=== PATIENT | male | born 1965 | race Caucasian/White ===

== ENCOUNTER → 2016-10-15 | Outpatient (CLI) | payer OTHER ==
[~2016-10-15] MED LIST: AUGMENTIN 875-1 EACH PO; AZITHROMYCIN500 MG PO; COENZYME Q1030 MG PO; DELTASONE10 MG PO; DELTASONE20 MG PO; DELTASONE5 MG PO; EFFEXOR XR150 MG PO; EFFEXOR XR75 MG PO; FISH OIL1000 MG PO; FLONASE 50 MCG/16 GM NOSE; LEVAQUIN500 MG PO; LEVAQUIN750 MG PO; MEN'S ONE DAIL1 EACH PO; VITAMIN C1000 MG PO; XYZAL5 MG PO; ZINC50 M1 PO; ZYRTEC10 MG PO; [UNRECOGNIZED DRUG - REMARK] IM
== END | disposition disaster alternative care site (69) ==
LOC: GRAD 13:48
DX: M54.2 Cervicalgia (principal); M47.812 Spondylosis without myelopathy or radiculopathy, cervical region; M50.223 Other cervical disc displacement at C6-C7 level; R20.0 Anesthesia of skin

== ENCOUNTER 2017-01-12 10:30 | Observation (INO) | payer OTHER ==
[~2017-01-12] VITALS: Ht 185.4 cm; Wt 103.0 kg
[~2017-01-12 10:30] MED LIST changes: -AUGMENTIN 875-1 EACH PO; -AZITHROMYCIN500 MG PO; -LEVAQUIN500 MG PO; -ZINC50 M1 PO
[2017-01-12] MEDS ORDERED: ZINC50 M1 PO (11:49)
[2017-01-12] MEDS ORDERED: AUGMENTIN 875-1 EACH PO (11:59)
[2017-01-12] MEDS ORDERED: AZITHROMYCIN500 MG PO (12:01)
--- NOTE | 2017-01-12 12:42 | NUR ---
Pt is 51 y/o male admit for pneumonia for Dr.Chadd Brewster. Pt alert and oriented x3. No allergies to medications. Resides at home with his spouse. Hx pneumonia,bronchitis,occas sinus headache,hemorrhoid. Started getting sick last Tuesday, saw on Tuesday and started Zpack. Did not have any improvement since then and had fever 102 last night with chills. CAme from [facility] today.
[2017-01-12 15:40] LABS: BILIRUBIN URINE NEGATIVE (NEGATIVE); BLOOD URINE NEGATIVE /UL (NEGATIVE); COLOR URINE YELLOW (YELLOW); GLUCOSE URINE NEGATIVE (NEGATIVE); KETONE URINE NEGATIVE (NEGATIVE); LEUKOCYTES URINE NEGATIVE /UL (NEGATIVE); NITRITE URINE NEGATIVE (NEGATIVE); PROTEIN URINE NEGATIVE (NEGATIVE); SPEC GRAVITY URINE 1.015 (1.003-1.035); TURBIDITY URINE CLEAR (CLEAR); UROBILINOGEN URINE NORMAL (NORMAL)
[2017-01-12 16:10] LABS: BASOPHIL % 0.5 %; EOSINOPHIL # 0.5 K/uL (0.0-0.5); EOSINOPHIL % 8.6 %; HEMATOCRIT 48.4 % (37.0-53.0); HEMOGLOBIN 17.6 g/dL (12.0-17.0); IMMATURE GRANULOCYTE % 0.7 %; LYMPHOCYTE # 1.3 K/uL (0.8-4.0); LYMPHOCYTE % 23.4 %; MCH 33.1 pg (27.0-34.0); MCHC 36.4 gm/dL (32.0-36.5); MONOCYTE # 0.5 K/uL (0.0-1.0); MONOCYTE % 9.1 %; MPV 10.7 fl (9.4-12.4); NEUTROPHIL # (ANC) 3.2 K/uL (1.4-9.0); NEUTROPHIL % 57.7 %; NRBC % 0 /100WBC (0-0.00); PLATELET COUNT 187 K/uL (150-450); RBC 5.32 M/uL (4.00-6.00); RDW-CV 12.3 % (11.9-14.6); WBC 5.6 K/uL (4.0-11.0)
[2017-01-12 16:29] LABS: ALK PHOS 76 IU/L (33-138); ALT 52 IU/L (12-78); ANION GAP 13.1 (10.0-19.0); AST 36 IU/L (10-40); BLOOD UREA NITROGEN 15 mg/dL (6-24); CALCIUM 8.7 mg/dL (8.5-10.5); CHLORIDE 105 mMol/L (96-110); CO2 24 mMol/L (22-32); CREATININE 0.9 mg/dL (0.6-1.3); ESTIMATED GFR (MDRD EQUATION) > 60; POTASSIUM 4.1 mMol/L (3.7-5.1); SODIUM 138 mMol/L (135-145); TOTAL BILIRUBIN 0.5 mg/dL (0.0-1.5); TOTAL PROTEIN 7.5 g/dL (6.0-8.4)
--- NOTE | 2017-01-12 17:27 | NUR ---
Significant Event: Patient arrived to floor at [address] Earnest Brewster office. SBP 120's and 140's. HR 90's. Room air. Alert and oriented X 3. Ad Venus in room. Peripheral IV to right medial forearm, flushes well with good blood return. IV antibiotics started. Regular diet. Pleasant and cooperative with cares. Follow up:
--- NOTE | 2017-01-13 05:05 | NUR ---
A/O. HR 80-100s. SBP 130-150s. ROOM AIR. AFEBRILE. NS AT 125ML/HR. INDEPENENT IN ROOM. VOIDS PER URINAL. NO BM. DENIES PAIN.
--- NOTE | 2017-01-13 15:09 | NUR ---
Significant Event: pt up halls and up in room. Very harsh cough small sputum. 02 room air. HR 90-100s. No c/o pain. Pt showered today. Follow up:
--- NOTE | 2017-01-14 04:24 | NUR ---
Significant Event: A/O x3. Afebrile. Denies pain. VSS on RA. LS clear/dim. IV NS @ 125 running. 1800 uop. Walked in gonzalez x1. Up adlib. Cooperative with cares. Follow up: Continue to monitor per plan of care.
[2017-01-14] MEDS ORDERED: LEVAQUIN500 MG PO (08:49)
[2017-01-14] MEDS ORDERED: DELTASONE20 MG PO (08:49)
--- NOTE | 2017-01-14 10:37 | NUR ---
Patient dismissed to home.Denies question or concern of dismissal. Discussed new meds and f/u appt. FV and IS sent home with patient. IV dc'd.
== END 2017-01-14 10:35 | disposition disaster alternative care site (69) ==
LOC: GPCU 11:14
PROVIDERS: ADMIT Family Medicine
DX: J18.9 Pneumonia, unspecified organism (principal); F32.9 Major depressive disorder, single episode, unspecified; E78.5 Hyperlipidemia, unspecified; Z79.899 Other long term (current) drug therapy; J30.9 Allergic rhinitis, unspecified
CPT/HCPCS: G0378; G0379; J1650; J1956; J2930; J7030; J7050